=== PATIENT | female | born 1940 | race Caucasian/White ===

== ENCOUNTER → 2016-07-27 | Outpatient (CLI) | payer BC | END | disposition home or self-care (01) | LOC: C.LAB1850 12:53 | PROVIDERS: ATTEND Internal Medicine | DX: Z00.00 Encounter for general adult medical examination without abnormal findings (principal); R94.6 Abnormal results of thyroid function studies ==

== ENCOUNTER → 2016-12-03 | Outpatient (CLI) | payer BC ==
[2016-12-03 10:18] LABS: T3 TOTAL 0.97 ng/ml (0.60-1.81); THYROXINE (T4) 8.8 mcg/dl (4.5-10.9)
== END | disposition home or self-care (01) ==
LOC: C.LAB1850 07:27
PROVIDERS: ATTEND Internal Medicine
DX: R94.6 Abnormal results of thyroid function studies (principal)

== ENCOUNTER → 2016-12-14 | Outpatient (CLI) | payer BC ==
[2016-12-14 10:04] LABS: BASO % 0.2 %; BASO ABS # 0.01 K/uL (0-0.2); COMPLETE YES; EOS % 3.2 %; HEMATOCRIT 45.5 % (37-47); IG% 0.3 %; LYMPH % 39.1 %; LYMPH ABS # 2.55 K/uL (1.2-3.4); MEAN CELL VOLUME 92.1 fL (80-100); MEAN CORPUSCULAR HEMOGLOBIN 31.6 pg (25-34); MEAN CORPUSCULAR HGB CONC 34.3 g/dl (32-36); MEAN PLATELET VOLUME 9.5 fL (7.4-10.4); MONO % 6.4 %; NEUT % 50.8 %; PLATELET COUNT 325 K/uL (130-400); RED BLOOD COUNT 4.94 M/uL (4.2-5.4); WHITE BLOOD COUNT 6.52 K/uL (4.8-10.8)
== END | disposition home or self-care (01) ==
LOC: C.LAB1850 09:01
PROVIDERS: ATTEND Internal Medicine
DX: R63.0 Anorexia (principal); R10.9 Unspecified abdominal pain

== ENCOUNTER → 2017-01-18 | Outpatient (CLI) | payer BC ==
--- NOTE | 2017-01-28 09:25 | CODING QUERY MEDICAL NECESSITY ---
SUPPORTING DIAGNOSIS NEEDED A supporting diagnosis is required for the test/procedure performed on this patient in order for us to be reimbursed by the patient's insurance. Please provide a supporting diagnosis for the following test/procedure listed below next to the test name along with your signature. *If there is no additional diagnosis for this patient that would support the following test/procedure please document that below next to the test/procedure. Test(s)/Procedure(s) that require a supporting diagnosis: * JIL B CELL GENE MOLECULAR DIAGNOSIS: Provider Signature: Date: Thank you Evangelina Jimmy [facility] Management Once completed, please kindly fax back to [phone] For questions please call [phone]
== END | disposition home or self-care (01) ==
LOC: C.PATHSPEC 17:20
PROVIDERS: ATTEND Dentist Oral and Maxillofacial Pathology
DX: D10.39 Benign neoplasm of other parts of mouth (principal); L98.6 Other infiltrative disorders of the skin and subcutaneous tissue

== ENCOUNTER → 2017-04-05 | Outpatient (CLI) | payer BC ==
[~2017-04-05] MED LIST: ATOR-22 PO
--- NOTE | 2017-04-05 09:21 | DIAGNOSTIC IMAGING REPORT ---
TWO VIEW CHEST CLINICAL HISTORY: Cough. FINDINGS: PA and lateral chest radiographs are compared to study dated 10/16/2012. Correlation is made with chest CT dated 02/25/2009. The cardiomediastinal silhouette is unremarkable. There are minimal left basilar opacities. The lungs are otherwise clear. No pleural effusion or pneumothorax is seen. The skeletal structures are osteopenic. The bony thorax appears intact. IMPRESSION: There are minimal left basilar opacities, likely representing atelectasis. Correlate clinically for evidence of a mild infectious/inflammatory pneumonitis. Electronically signed by: Tom Canseco M.D. 04/05/2017 9:20 AM Dictated Date/Time: 04/05/2017 9:12 AM
== END | disposition home or self-care (01) ==
LOC: C.RAD1850 08:52
PROVIDERS: ATTEND Family Medicine
DX: J18.9 Pneumonia, unspecified organism (principal)

== ENCOUNTER 2017-04-09 | Emergency (ER) | payer BC ==
[~2017-04-09] VITALS: Ht 157.5 cm; Wt 65.5 kg
[2017-04-09 00:08] VITALS: TEMP 36.7; Ht 157.5 cm; Wt 65.5 kg
[2017-04-09] MEDS ORDERED: ATOR-22 PO (01:37)
[2017-04-09 02:48] VITALS: BP 135/71; PULSE 80; O2SAT 94
--- NOTE | 2017-04-09 04:56 | EMERGENCY ROOM VISIT NOTE ---
History First contact with patient: 00:17 Chief Complaint: RESPIRATORY PROBLEMS Stated Complaint: DIFFICULT BREATHING,PNEUMONIA IN LEFT LUNG Nursing Triage Summary: Patient states she has L lower lobe pneumonia. Patient awoke tonight with difficulty breathing. History of Present Illness The patient is a 76 year old female who presents to the Emergency Room with complaints of diagnosis of left lower lobe pneumonia 3 days ago as an outpatient. The patient states that she is currently on Zithromax and is taken a few doses of the medication. She was at home tonight, and felt like she may have had some more difficulty breathing than normal. She is concerned that her pneumonia symptoms may have worsened. She is not having fever, chills, chest pain, chest tightness, or abdominal pain. She states that some of her difficulty breathing occurred after having several episodes of coughing. The patient currently is feeling well without complaints. She is requesting a chest x-ray to make sure that her pneumonia has not worsened. Review of Systems More than 10 systems were reviewed and otherwise negative with the exception of history of present illness. Past Medical/Surgical History Medical Problems: (1) FAMILY HX-GI MALIGNANCY (2) HYPERLIPIDEMIA NEC/NOS (3) OBSTRUCTIVE SLEEP APNEA (ADULT) (PEDIATRIC) Family History No pertinent family history Social History Smoking Status: Never Smoker Alcohol Use: none Marital Status: Occupation Status: retired Current/Historical Medications Scheduled Atorvastatin (Lipitor), 20 MG PO DAILY Physical Exam Vital Signs Date Time Temp Pulse Resp B/P (MAP) Pulse Ox O2 Delivery O2 Flow Rate FiO2 04/09/17 02:48 80 20 135/71 94 04/09/17 02:00 76 20 122/76 96 Room Air 04/09/17 00:12 96 Room Air 04/09/17 00:08 36.7 68 20 125/82 95 Room Air Physical Exam VITALS: Vitals are noted on the nurse's note and reviewed by myself. Vital signs stable. GENERAL: Well-developed, well-nourished, white female, who is in no acute distress and resting comfortably. Patient is cooperative with the examination. HEART: Regular rate and rhythm without murmurs gallops or rubs. LUNGS: Mild left lower lobe crackles are appreciated. Remaining lungs are essentially clear. ABDOMEN: Positive normal bowel sounds x 4. Soft, nontender, without masses or organomegaly. No guarding or rebound tenderness. No CVA tenderness. MUSCULOSKELETAL: No muscle atrophy, erythema, or edema noted. Full range of motion without joint tenderness in all extremities. Medical Decision & Procedures ED Course Physical exam and history were performed. Nursing notes, EMR, and Medication List were personally reviewed. Patient appears to have an outpatient diagnosis of left lower lobe pneumonia. The patient does have crackles in the left lower lobe on physical examination. She is afebrile and does not appear toxic on examination. X-ray was performed this evening and compared to x-ray a few days ago. There does not appear to be distinct worsening of her lungs on imaging. The patient evidently has an upcoming appointment in 2 days with her primary care physician. She does have Zithromax at home, and it is reasonable for her to continue this prescription. The patient is to monitor for worsening symptoms at home and she was certainly very back to the ER with any new, worsening, or concerning symptoms. The chart was completed utilizing [employer] Voice Recognition Software. Grammatical errors, random word insertions, pronoun errors, and incomplete sentences are an occasional consequence of this system due to software limitations, ambient noise, and hardware issues. Any formal questions or concerns about the content, text, or information contained within the body of this dictation should be directly addressed to the provider for clarification. . Medical Decision Differential diagnosis: Etiologies such as infections, reactive airway disease, pneumonia, pneumothorax , COPD, CHF, cardiac ischemia, pulmonary embolism, musculoskeletal, gastrointestinal, as well as others were entertained. Impression Primary Impression: Left lower lobe pneumonia Departure Information Dispostion Home / Self-Care Condition GOOD Forms HOME CARE DOCUMENTATION FORM, IMPORTANT VISIT INFORMATION Patient Instructions [facility] Additional Instructions You were seen and evaluated today on an emergency basis only. This is not a substitute for, or an effort to provide, complete comprehensive medical care. It is not possible to recognize and treat all injuries or illnesses in a single emergency department visit. For this reason it is recommended that you followup with your primary care physician on Tuesday as scheduled for recheck. Continue antibiotics as prescribed. You are welcome to return to the emergency department anytime with new, worsening, or concerning symptoms.
--- NOTE | 2017-04-09 07:17 | DIAGNOSTIC IMAGING REPORT ---
CHEST 2 VIEWS ROUTINE HISTORY: 76 years-old Female Possible pneumonia acute difficulty breathing. Follow-up study to assess possible left lower lobe pneumonia COMPARISON: Chest radiograph 04/05/2017 TECHNIQUE: PA and lateral views of the chest FINDINGS: Cardiac silhouette is upper limits of normal, unchanged. Atherosclerosis of the aorta. No pneumothorax or pleural effusion. Subsegmental lingular and left lower lobe opacities are again seen which appears somewhat linear and are unchanged. Bones of the chest appear grossly intact. Degenerative changes involve the shoulders and spine. The bones appear osteopenic. IMPRESSION: Persistent subsegmental opacities of the lingula and basal left lower lobe favor atelectasis/scarring with pneumonia thought to be less likely. The above report was generated using voice recognition software. It may contain grammatical, syntax or spelling errors. Electronically signed by: George Castillo M.D. 04/09/2017 7:16 AM Dictated Date/Time: 04/09/2017 7:14 AM
== END 2017-04-09 02:49 | disposition home or self-care (01) ==
LOC: C.EDB 00:01
DX: J18.9 Pneumonia, unspecified organism (principal); E78.5 Hyperlipidemia, unspecified; G47.33 Obstructive sleep apnea (adult) (pediatric); Z79.899 Other long term (current) drug therapy; Z80.0 Family history of malignant neoplasm of digestive organs

== ENCOUNTER → 2017-05-18 | Outpatient (CLI) | payer BC ==
--- NOTE | 2017-05-18 15:30 | MAMMOGRAPHY REPORT ---
BILATERAL DIGITAL SCREENING MAMMOGRAM TOMOSYNTHESIS WITH CAD: 05/18/2017 CLINICAL HISTORY: Routine screening. Patient has no complaints. TECHNIQUE: Breast tomosynthesis in addition to standard 2D mammography was performed. Current study was also evaluated with a Computer Aided Detection (CAD) system. COMPARISON: Comparison is made to exam dated: 03/20/2009 mammogram - [facility] [address] BREAST COMPOSITION: There are scattered areas of fibroglandular density in both breasts. FINDINGS: No suspicious masses, calcifications, or areas of architectural distortion are noted in ei ther breast. There has been no significant interval change compared to prior exams. IMPRESSION: ACR BI-RADS CATEGORY 1: NEGATIVE There is no mammographic evidence of malignancy. A 1 year screening mammogram is recommended. The pa tient will receive written notification of the results. Approximately 10% of breast cancers are not detected with mammography. A negative mammographic report should not delay biopsy if a clinically suggestive mass is present. Keesha Chan M.D. ah/:05/18/2017 10:10:35 Walking Dragline Oiler: Sylvia COOPER(Elroy)(Julio), [facility] [address] letter sent: Normal 1/2 BI-RADS Code: ACR BI-RADS Category 1: Negative
== END | disposition home or self-care (01) ==
LOC: C.MAMM 09:44
PROVIDERS: ATTEND Internal Medicine
DX: Z12.31 Encounter for screening mammogram for malignant neoplasm of breast (principal)

== ENCOUNTER → 2017-06-10 | Outpatient (CLI) | payer BC ==
--- NOTE | 2017-06-10 11:16 | DIAGNOSTIC IMAGING REPORT ---
CHEST 2 VIEWS ROUTINE CLINICAL HISTORY: J18.9 PNEUMONIA COMPARISON STUDY: April 09, 2017 FINDINGS: The cardiac and mediastinal contours remain stable. There are resolving left basilar airspace opacities. There is no acute parenchymal consolidation. There are no pleural effusions. There is no failure.[ IMPRESSION: Resolving left basal airspace opacities Electronically signed by: Kaiser Mccloud M.D. 06/10/2017 11:14 AM Dictated Date/Time: 06/10/2017 11:13 AM
== END | disposition home or self-care (01) ==
LOC: C.RAD 10:55
PROVIDERS: ATTEND Family Medicine
DX: J18.9 Pneumonia, unspecified organism (principal)

== ENCOUNTER → 2017-12-08 | Outpatient (CLI) | payer BC ==
--- NOTE | 2017-12-08 11:15 | DIAGNOSTIC IMAGING REPORT ---
CHEST 2 VIEWS ROUTINE HISTORY: 77 years-old Female J18.9 Pneumonia acute cough with pneumonia COMPARISON: Chest radiograph 04/09/2017 and 04/05/2017 TECHNIQUE: PA and lateral views of the chest FINDINGS: Cardiomediastinal and hilar silhouettes are within normal limits. Lungs are mildly hyperinflated. Improved aeration of the left lung base without pneumothorax, pleural effusion, focal airspace consolidation or overt pulmonary edema. Bones of the chest appear grossly intact. IMPRESSION: No acute process. The above report was generated using voice recognition software. It may contain grammatical, syntax or spelling errors. Electronically signed by: George Castillo M.D. 12/08/2017 11:13 AM Dictated Date/Time: 12/08/2017 11:11 AM
[2017-12-08 12:14] LABS: BASO % 0.3 %; BASO ABS # 0.02 K/uL (0-0.2); EOS ABS # 0.21 K/uL (0-0.5); HEMATOCRIT 46.4 % (37-47); HEMOGLOBIN 15.3 g/dL (12.0-16.0); IG# 0.02 K/uL (0.00-0.02); LYMPH % 43.7 %; MEAN CELL VOLUME 92.1 fL (80-100); MEAN CORPUSCULAR HEMOGLOBIN 30.4 pg (25-34); MONO % 5.6 %; NEUT % 47.1 %; NEUT ABS # 3.34 K/uL (1.4-6.5); PLATELET COUNT 301 K/uL (130-400); RED CELL DISTRIBUTION WIDTH CV 12.2 % (11.5-14.5); WHITE BLOOD COUNT 7.09 K/uL (4.8-10.8)
[2017-12-08 12:53] LABS: ALT/SGPT 56 U/L (12-78); AST/SGOT 37 U/L (15-37); BLOOD UREA NITROGEN 17 mg/dl (7-18); CALCIUM 8.8 mg/dl (8.5-10.1); CARBON DIOXIDE 26 mmol/L (21-32); CHOLESTEROL 180 mg/dl (0-200); CREATININE 0.89 mg/dl (0.60-1.20); GLUCOSE 81 mg/dl (70-99); LDL CHOLESTEROL CALCULATED 95 mg/dl; POTASSIUM 3.8 mmol/L (3.5-5.1); SODIUM 138 mmol/L (136-145)
[2017-12-09 05:47] LABS: HEMOGLOBIN A1C 5.6 % (4.5-5.6)
== END | disposition home or self-care (01) ==
LOC: C.RAD1850 10:52
PROVIDERS: ATTEND Internal Medicine
DX: J18.9 Pneumonia, unspecified organism (principal); R94.6 Abnormal results of thyroid function studies; R73.9 Hyperglycemia, unspecified; E78.5 Hyperlipidemia, unspecified; R00.2 Palpitations